=== PATIENT | female | born 1950 | race Caucasian/White ===

== ENCOUNTER 2017-05-08 03:47 | Observation (INO) | payer MEDICARE ==
[2017-05-08] MEDS ORDERED: ONDANSETRON HCL 4 MG/2 ML VIAL IV PRN (04:30)
[2017-05-08] MEDS ORDERED: NALOXONE HCL 0.4 MG/ML AMP IV PRN (04:30)
[2017-05-08] MEDS ORDERED: SODIUM CHLORIDE 0.9% FLUSH 10 ML FLUSH IV FLUSH PRN (04:30)
[2017-05-08] MEDS ORDERED: ACETAMINOPHEN 500 MG CPLT PO PRN (04:30)
[2017-05-08 04:32] VITALS: BP 108/77; PULSE 66; RESP 18; TEMP 96.6; O2SAT 98
[2017-05-08 08:00] VITALS: BP 109/74; PULSE 67; RESP 18; TEMP 97.9; O2SAT 100
[2017-05-08] MEDS ORDERED: SODIUM CHLORIDE 0.9% FLUSH 10 ML FLUSH IV FLUSH SCH (09:00)
--- NOTE | 2017-05-08 11:03 | HHI.HP ---
HPI Service [facility] Primary Care Physician No Primary Care Physician Admission Diagnosis Diagnoses: (1) Supraventricular tachycardia (2) MVP (mitral valve prolapse) Chief Complaint: Heart palpitation Travel History International Travel<30 Days: No Contact w/Intl Traveler <30 Da: No Traveled to Known Affected Are: No History of Present Illness 66 year-old female with a history of atrial valve prolapse, frequent heart palpitations went to [facility] ED for evaluation of rapid and sustained heart palpitations yesterday without any associated chest pain or shortness of breath. Patient states, she usually does have heart palpitation although these appear after exercise and usually do not last. She reports being under a lot of stress after moving from [place] to [place] about a month ago. She also states drinking caffeinated strong tea yesterday. On admission patient had HR of 190 and she was treated with Adenosine1. Initial cardiac enzyme was normal however patient had elevated cardiac enzyme with the latest one 0.14 and EKG with normal sinus rhythm. TSH was normal. During my exam, patient denies any heart palpitation, chest pain or shortness of breath. Review of Systems Except as stated in HPI: all other systems reviewed are Neg Past Family Social History Past Medical History Heart Rhythm Problems: Yes (SVT AND MITRAL VALVE PROLAPSE) Ulcer: Yes Past Surgical History Section: Yes (x 3) Reported Medications Baby aspirin Multivitamin Allergies: Coded Allergies: No Known Allergies (Unverified , 05/07/17) Family History Strong family history of heart disease with her Dad had heart disease , CVA Her mother had CVA Social History Alcohol Use: Yes Tobacco Use: No Substance Use: No Physical Exam Vital Signs Vital Signs Date Time Temp Pulse Resp B/P Pulse Ox O2 Delivery O2 Flow Rate FiO2 05/08/17 08:00 97.9 67 18 109/74 100 05/08/17 04:32 96.6 66 18 108/77 98 Physical Exam GENERAL: This is a well-nourished, well-developed patient, in no apparent distress. SKIN: No rashes, ecchymoses or lesions. Cool and dry. HEAD: Atraumatic. Normocephalic. No temporal or scalp tenderness. EYES: Pupils equal round and reactive. Extraocular motions intact. No scleral icterus. No injection or drainage. ENT: Nose without bleeding, purulent drainage or septal hematoma. Throat without erythema, tonsillar hypertrophy or exudate. Uvula midline. Airway patent. NECK: Trachea midline. No JVD or lymphadenopathy. Supple, nontender, no meningeal signs. CARDIOVASCULAR: Regular rate and rhythm without murmurs, gallops, or rubs. RESPIRATORY: Clear to auscultation. Breath sounds equal bilaterally. No wheezes , rales, or rhonchi. GASTROINTESTINAL: Abdomen soft, non-tender, nondistended. No hepato-splenomegaly , or palpable masses. No guarding. MUSCULOSKELETAL: Extremities without clubbing, cyanosis, or edema. No joint tenderness, effusion, or edema noted. No calf tenderness. Negative Homans sign bilaterally. NEUROLOGICAL: Awake and alert. Cranial nerves II through XII intact. Motor and sensory grossly within normal limits. Five out of 5 muscle strength in all muscle groups. Normal speech. Laboratory Laboratory Tests Test 05/08/17 05/08/17 05:15 09:55 Total Creatine Kinase 75 74 Troponin I 0.19 0.14 Assessment and Plan Problem List: (1) Supraventricular tachycardia ICD Code: I47.1 Status: Acute (2) MVP (mitral valve prolapse) ICD Code: I34.1 Status: Acute (3) IFG (impaired fasting glucose) ICD Code: R73.01 Status: Acute (4) Cardiac enzymes elevated ICD Code: R74.8 Status: Acute Assessment and Plan 66-year-old female with History mitral valve prolapse Supraventricular tachycardia-now resolved Elevated cardiac enzyme Status post Adenosine in 1 in ED Currently patient is in normal sinus rhythm 2-D echo with EF of 60-65% and normal left ventricular systolic function. Finding of Mild mitral valve regurgitation. Mild anterior leaflet redundancy. No thyroid dysfunction with normal TSH Continue with baby aspirin Patient will follow outpatient with [employer] when necessary Impaired fasting glucose No known history of diabetes type 2 Check hemoglobin A1c and treat accordingly DVT prophylaxis SCDs Patient is stable and will be discharged home Code Status Full code Discussed Condition With Patient, Grey Glez MD May 08, 2017 11:03
--- NOTE | 2017-05-08 11:20 | ECHRPT ---
Indication: Cardiac arrhythmia, unspecified CONCLUSIONS Normal left ventricular size and wall thickness. The left ventricular systolic function is normal wi th an estimated ejection fraction in the range of 60-65%. Mild mitral valve regurgitation. Mild anterior leaflet redundancy. There is trace tricuspid valve regurgitation. The estimated pulmonary arterial pressure is 27 mmHg. BP: 108 / 77 HR: 98 Rhythm: Sinus MEASUREMENTS (Male / Female) Normal Values Technical Quality:Good 2D ECHO LV Diastolic Diameter PLAX 4.1 cm 4.2 - 5.9 / 3.9 - 5.3 cm LV Systolic Diameter PLAX 3.4 cm IVS Diastolic Thickness 0.9 cm 0.6 - 1.0 / 0.6 - 0.9 cm LVPW Diastolic Thickness 0.9 cm 0.6 - 1.0 / 0.6 - 0.9 cm LV Relative Wall Thickness 0.4 LVOT Diameter 1.7 cm M-MODE Aortic Root Diameter MM 2.8 cm LA Systolic Diameter MM 3.3 cm LA Ao Ratio MM 1.2 AV Cusp Separation MM 2.0 cm DOPPLER AV Peak Velocity 103.0 cm/s AV Peak Gradient 4.2 mmHg LVOT Peak Velocity 103.0 cm/s LVOT Peak Gradient 4.2 mmHg AV Area Cont Eq pk 2.3 cm MR Peak Velocity 486.0 cm/s MR Peak Gradient 94.5 mmHg Mitral E Point Velocity 172.0 cm/s Mitral A Point Velocity 151.0 cm/s Mitral E to A Ratio 1.1 LV E' Lateral Velocity 6.5 cm/s Mitral E to LV E' Lateral Ratio 26.3 LV E' Septal Velocity 7.4 cm/s Mitral E to LV E' Septal Ratio 23.2 TR Peak Velocity 208.0 cm/s TR Peak Gradient 17.3 mmHg PV Peak Velocity 78.7 cm/s PV Peak Gradient 2.5 mmHg FINDINGS LEFT VENTRICLE Normal left ventricular size and wall thickness. The left ventricular systolic function is normal wi th an estimated ejection fraction in the range of 60-65%. RIGHT VENTRICLE Normal right ventricular size and systolic function. LEFT ATRIUM The left atrial size is normal. RIGHT ATRIUM The right atrial size is normal. ATRIAL SEPTUM Normal atrial septal thickness without atrial level shunting by limited color doppler interrogation. AORTA The aortic root and proximal ascending aorta are normal in size on limited imaging. MITRAL VALVE Mild mitral valve regurgitation. Mild anterior leaflet redundancy. AORTIC VALVE Trileaflet aortic valve. No aortic valve stenosis or regurgitation. TRICUSPID VALVE There is trace tricuspid valve regurgitation. The estimated pulmonary arterial pressure is 27 mmHg. PULMONARY VALVE The pulmonary valve is not well visualized. VESSELS The inferior vena cava is normal in size. PERICARDIUM No pericardial effusion. Jono Strange MD (Electronically Signed) Final Date:08 May 2017 11:19
[2017-05-08 12:00] VITALS: BP 112/79; PULSE 69; RESP 19; TEMP 97.8; O2SAT 99
[2017-05-08] MEDS ORDERED: ASPI81TA11 PO (12:07)
--- NOTE | 2017-05-08 12:11 | HHI.PR ---
Addendum to Inpatient Note Addendum Reason: Additional Documentation Additional Information Discharge patient to home Condition on discharge: Improved Regular Diet as tolerated Ad Iram activity Rx written:see EMR Follow-up with primary care physician in 1 week Grey Glez MD May 08, 2017 12:11
--- NOTE | 2017-05-08 16:30 | EKG ---
Date Performed: 05/08/2017 Time Performed: 09:40:04 PTAGE: 66 years EKG: Sinus rhythm NORMAL ECG PREVIOUS TRACING : 05/08/2017 04.57 DOCTOR: Tom Grover Interpretating Date/Time 05/08/2017 16:28:20
--- NOTE | 2017-05-08 16:30 | EKG ---
Date Performed: 05/08/2017 Time Performed: 04:57:05 PTAGE: 66 years EKG: Sinus rhythm POSSIBLE RIGHT VENTRICULAR CONDUCTION DELAY BORDERLINE ECG PREVIOUS TRACING 05/07/2017 21.08.59 Since previous tracing, no significant change noted DOCTOR: Tom Grover Interpretating Date/Time 05/08/2017 16:28:09
[2017-05-09 21:29] LABS: HEMOGLOBIN A1a 1.4 %; HEMOGLOBIN A1b 1.4 %; HEMOGLOBIN LA1C 1.5 %; HEMOGLOBIN P3 3.6 %
== END 2017-05-08 13:10 | disposition home or self-care (01) ==
LOC: PHEDDLT 03:47 → PH3B 03:57 → UNDOADMOB 03:57
PROVIDERS: ADMIT Hospitalist; ATTEND Hospitalist
DX: I47.1 Supraventricular tachycardia (principal); I34.1 Nonrheumatic mitral (valve) prolapse; R74.8 Abnormal levels of other serum enzymes; I34.0 Nonrheumatic mitral (valve) insufficiency; R73.01 Impaired fasting glucose; R00.2 Palpitations
CPT/HCPCS: 80053; 82550; 83036; 84443; 84484; 85025; 93005; 93306; 96361; 96374; 99285; G0378; J0153; J7030; 99281